=== PATIENT | male | born 1965 | race Caucasian/White ===

== ENCOUNTER 2020-05-18 06:15 | Outpatient (REF) | payer BC, SELFPAY ==
[2020-05-18 11:14] LABS: MANUAL DIFF FLAG NO
[2020-05-18 11:21] LABS: Basophils Percent Auto 0.5 % (0-2); Eosinophils Absolute Auto 0.2 X10*3/uL (0.0-0.4); Eosinophils Percent Auto 2.9 % (0-4); Hematocrit 43.9 % (42-52); Hemoglobin 14.6 g/dl (14.0-18.0); Imm Gran Abs Auto 0.01 X10*3/uL (0.00-0.03); Imm Gran Pct Auto 0.2 % (0.0-0.4); Lymphocytes Absolute Auto 1.1 X10*3/uL (1.2-4.9); Lymphocytes Percent Auto 18.2 % (20-40); Mean Corpuscular HGB Conc 33.3 g/dl (31.0-36.0); Mean Corpuscular Hemoglobin 32.2 pg (27.0-33.0); Mean Corpuscular Volume 96.9 fL (80-98); Mean Platelet Volume 10.3 fL (9.4-12.4); Monocytes Absolute Auto 0.6 X10*3/uL (0.1-1.2); Monocytes Percent Auto 9.6 % (2-11); Neutrophils Absolute Auto 4.1 X10*3/uL (2.0-8.3); Neutrophils Percent Auto 68.6 % (45-73); Platelet Count 219 X10*3/uL (160-400); Red Blood Count 4.53 X10*6/uL (4.60-5.80); Red Cell Distribution Width 12.9 % (11.0-16.0)
[2020-05-18 11:42] LABS: Alanine Aminotransferase 20 U/L (0-40); Albumin Level 4.6 g/dL (3.5-5.0); Alkaline Phosphatase 60 U/L (39-117); Anion Gap 14 (12-20); Aspartate Amino Transferase 20 U/L (5-37); Bilirubin Total 1.5 mg/dL (0.0-1.0); Blood Urea Nitrogen 19 mg/dL (9-16); Calcium 9.4 mg/dL (8.4-10.2); Carbon Dioxide 26 mmol/L (22-29); Chloride 103 mmol/L (96-108); Estimated Glomerular Filt Rate > 60; Glucose Random 104 mg/dL (60-115); Potassium 4.3 mmol/l (3.3-5.1); Sodium 139 mmol/L (135-145); Total Protein 7.5 g/dL (6.5-8.0)
[2020-05-18 11:50] LABS: Ferritin 331 ng/mL (20-250); TSH reflex Free T4 1.11 mIU/mL (0.32-4.0)
[2020-05-18 12:05] LABS: Vitamin B12 481 pg/mL (200-900)
[2020-05-19 06:47] LABS: LDL Cholesterol Direct 75 mg/dL (<100)
== END 2020-05-18 06:16 | disposition home or self-care (01) ==
LOC: HO.HMGCLDS 06:15
PROVIDERS: PCP Internal Medicine; Visit Provider Internal Medicine
DX: I10 Essential (primary) hypertension (principal); R73.03 Prediabetes; R79.89 Other specified abnormal findings of blood chemistry; E53.8 Deficiency of other specified B group vitamins; E78.2 Mixed hyperlipidemia; G62.1 Alcoholic polyneuropathy
CPT/HCPCS: 36415; 80053; 82607; 82728; 83721; 84443; 85025

== ENCOUNTER 2020-11-04 06:01 | Outpatient (REF) | payer OTHER, SELFPAY ==
[2020-11-04 17:38] LABS: Estimated Average Glucose 103 mg/dL; Hemoglobin A1c % 5.2 %
[2020-11-04 17:43] LABS: Alanine Aminotransferase 29 U/L (0-40); Albumin Level 4.6 g/dL (3.5-5.0); Alkaline Phosphatase 65 U/L (39-117); Anion Gap 13 (12-20); Aspartate Amino Transferase 18 U/L (5-37); Bilirubin Direct 0.6 mg/dL (0.0-0.5); Bilirubin Total 1.2 mg/dL (0.0-1.0); Blood Urea Nitrogen 16 mg/dL (9-16); Calcium 9.5 mg/dL (8.4-10.2); Carbon Dioxide 30 mmol/L (22-29); Chloride 102 mmol/L (96-108); Estimated Glomerular Filt Rate > 60; Glucose Random 106 mg/dL (60-115); Potassium 4.7 mmol/L (3.3-5.1); Sodium 140 mmol/L (135-145); Total Protein 7.5 g/dL (6.5-8.0)
[2020-11-04 17:55] LABS: Ferritin 367 ng/mL (20-250)
[2020-11-05 01:52] LABS: LDL Cholesterol Direct 72 mg/dL (<100)
== END 2020-11-04 06:02 | disposition home or self-care (01) ==
LOC: HO.HMGCLDS 06:01
PROVIDERS: PCP Internal Medicine; Visit Provider Internal Medicine
DX: E53.8 Deficiency of other specified B group vitamins (principal); E78.9 Disorder of lipoprotein metabolism, unspecified; G62.1 Alcoholic polyneuropathy; R79.89 Other specified abnormal findings of blood chemistry; R73.03 Prediabetes; I10 Essential (primary) hypertension
CPT/HCPCS: 36415; 80048; 80076; 81256; 82728; 83036; 83721

== ENCOUNTER 2020-12-25 07:16 | Outpatient (REF) | payer OTHER, SELFPAY ==
--- NOTE | ~2020-12-25 | CT_ITS ---
EXAMINATION: CT CHEST SCREENING CLINICAL INFORMATION: Personal history of nicotine dependence. COMPARISON: CT chest screening 10/09/2019 TECHNIQUE: Multidetector volumetric CT imaging of the chest is performed without contrast using low dose technique. Additional 2-D coronal and sagittal reformatted images and axial 3-D maximum intensity projection (MIP) images are generated on the CT workstation. This CT examination was performed using dose optimization techniques as appropriate, variously including the following: *Automated exposure control *Adjustment of mA and/or kV according to patient size (this includes techniques or standardized protocols for targeted exams where dose is matched to indication/reason for exam; i.e. extremities or head) *Use of iterative reconstruction technique DLP: 80 mGy-cm FINDINGS: LUNGS: There is a 2 mm subpleural nodule laterally left lower lobe image 414/6. There is a 10 mm parenchymal density in the lingula image 327/6. Previously, it measured approximately the same size. No additional lung nodules seen. The lungs are hyperinflated with no acute process seen. MEDIASTINUM: The thyroid lobes are symmetrical and normal. The central trachea and bronchi are widely patent. Heart size and the great vessels are normal caliber. No abnormal lymph nodes or mass seen. There is no pericardial effusion. PLEURA: There is no pleural effusion. No pleural mass or thickening. AXILLA: No lymphadenopathy. UPPER ABDOMEN: Unremarkable. OSSEOUS STRUCTURES: No lytic or sclerotic process seen. CT/CT lung screening IMPRESSION: Stable pulmonary nodules. ASSESSMENT: Lung-RADS category 2: Benign. RECOMMENDATION: Low-dose annual CT chest.
== END 2020-12-25 07:17 | disposition home or self-care (01) ==
LOC: HO.CT 07:16
PROVIDERS: Visit Provider Physician Assistant Medical
DX: Z12.2 Encounter for screening for malignant neoplasm of respiratory organs (principal); Z87.891 Personal history of nicotine dependence
CPT/HCPCS: 71271

== ENCOUNTER 2021-03-26 07:48 | Outpatient (REF) | payer OTHER, SELFPAY ==
[2021-03-26 12:04] LABS: Estimated Average Glucose 105 mg/dL; Hemoglobin A1c % 5.3 %
[2021-03-26 12:30] LABS: Alanine Aminotransferase 26 U/L (0-40); Albumin Level 4.6 g/dL (3.5-5.0); Alkaline Phosphatase 70 U/L (39-117); Anion Gap 14 (12-20); Aspartate Amino Transferase 17 U/L (5-37); Bilirubin Total 1.8 mg/dL (0.0-1.0); Blood Urea Nitrogen 19 mg/dL (9-16); Calcium 9.6 mg/dL (8.4-10.2); Carbon Dioxide 27 mmol/L (22-29); Chloride 104 mmol/L (96-108); Estimated Glomerular Filt Rate > 60; Glucose Random 104 mg/dL (60-115); Potassium 4.9 mmol/L (3.3-5.1); Sodium 140 mmol/L (135-145); Total Protein 7.6 g/dL (6.5-8.0)
[2021-03-26 12:51] LABS: Ferritin 388 ng/mL (20-250)
== END 2021-03-26 07:49 | disposition home or self-care (01) ==
LOC: HO.HMGCLDS 07:48
PROVIDERS: PCP Internal Medicine; Visit Provider Internal Medicine
DX: G62.1 Alcoholic polyneuropathy (principal); E78.9 Disorder of lipoprotein metabolism, unspecified; R79.89 Other specified abnormal findings of blood chemistry; R73.03 Prediabetes; I10 Essential (primary) hypertension; F10.20 Alcohol dependence, uncomplicated
CPT/HCPCS: 36415; 80053; 82728; 83036

== ENCOUNTER 2021-06-18 08:00 | Outpatient (REF) | payer OTHER, SELFPAY ==
[2021-06-18 11:28] LABS: MANUAL DIFF FLAG NO
[2021-06-18 11:32] LABS: Basophils Percent Auto 0.5 % (0-2); Eosinophils Absolute Auto 0.2 X10*3/uL (0.0-0.4); Eosinophils Percent Auto 2.9 % (0-4); Hematocrit 41.4 % (42.0-52.0); Hemoglobin 13.7 g/dl (14.0-18.0); Imm Gran Abs Auto 0.03 X10*3/uL (0.00-0.03); Imm Gran Pct Auto 0.5 % (0.0-0.4); Lymphocytes Absolute Auto 1.2 X10*3/uL (1.2-4.9); Lymphocytes Percent Auto 19.4 % (20-40); Mean Corpuscular HGB Conc 33.1 g/dl (31.0-36.0); Mean Corpuscular Hemoglobin 30.8 pg (27.0-33.0); Mean Platelet Volume 10.1 fL (9.4-12.4); Monocytes Absolute Auto 0.7 X10*3/uL (0.1-1.2); Monocytes Percent Auto 11.6 % (2-11); Neutrophils Percent Auto 65.1 % (45-73); Platelet Count 237 X10*3/uL (160-400); Red Blood Count 4.45 X10*6/uL (4.60-5.80); Red Cell Distribution Width 12.7 % (11.0-16.0); White Blood Count 6.2 X10*3/uL (4.8-10.8)
[2021-06-18 12:17] LABS: Ferritin 431 ng/mL (20-250)
[2021-06-18 12:18] LABS: Alanine Aminotransferase 27 U/L (0-40); Albumin Level 4.2 g/dL (3.5-5.0); Alkaline Phosphatase 64 U/L (39-117); Anion Gap 16 (12-20); Aspartate Amino Transferase 20 U/L (5-37); Bilirubin Total 1.9 mg/dL (0.0-1.0); Blood Urea Nitrogen 13 mg/dL (9-16); Calcium 9.4 mg/dL (8.4-10.2); Carbon Dioxide 24 mmol/L (22-29); Chloride 103 mmol/L (96-108); Estimated Glomerular Filt Rate > 60; Glucose Random 102 mg/dL (60-115); Sodium 138 mmol/L (135-145); Total Protein 7.1 g/dL (6.5-8.0)
== END 2021-06-18 08:01 | disposition home or self-care (01) ==
LOC: HO.HMGCLDS 08:00
PROVIDERS: PCP Internal Medicine; Visit Provider Internal Medicine
DX: E78.9 Disorder of lipoprotein metabolism, unspecified (principal); G62.1 Alcoholic polyneuropathy; I10 Essential (primary) hypertension; K76.0 Fatty (change of) liver, not elsewhere classified; R73.03 Prediabetes; R79.89 Other specified abnormal findings of blood chemistry
CPT/HCPCS: 36415; 80053; 82728; 85025

== ENCOUNTER 2021-10-22 08:17 | Outpatient (REF) | payer OTHER, SELFPAY ==
[2021-10-22 12:11] LABS: Alanine Aminotransferase 30 U/L (0-40); Albumin Level 4.4 g/dL (3.5-5.0); Alkaline Phosphatase 83 U/L (39-117); Anion Gap 11 (12-20); Aspartate Amino Transferase 20 U/L (5-37); Bilirubin Total 1.3 mg/dL (0.0-1.0); Blood Urea Nitrogen 17 mg/dL (9-16); Calcium 9.6 mg/dL (8.4-10.2); Carbon Dioxide 26 mmol/L (22-29); Chloride 105 mmol/L (96-108); Estimated Glomerular Filt Rate > 60; Glucose Random 124 mg/dL (60-115); Potassium 4.7 mmol/L (3.3-5.1); Sodium 137 mmol/L (135-145); Total Protein 7.6 g/dL (6.5-8.0)
== END 2021-10-22 08:18 | disposition home or self-care (01) ==
LOC: HO.HMGCLDS 08:17
PROVIDERS: Visit Provider Internal Medicine
DX: I10 Essential (primary) hypertension (principal); E78.9 Disorder of lipoprotein metabolism, unspecified; G62.1 Alcoholic polyneuropathy; R94.5 Abnormal results of liver function studies; F10.20 Alcohol dependence, uncomplicated
CPT/HCPCS: 36415; 80053

== ENCOUNTER 2022-09-19 06:09 | Outpatient (REF) | payer OTHER, SELFPAY ==
[2022-09-19 11:26] LABS: Estimated Average Glucose 117 mg/dL; Hemoglobin A1c % 5.7 %
[2022-09-19 11:32] LABS: Alanine Aminotransferase 22 U/L (0-40); Albumin Level 4.1 g/dL (3.5-5.0); Alkaline Phosphatase 53 U/L (39-117); Anion Gap 14 (12-20); Aspartate Amino Transferase 13 U/L (5-37); Bilirubin Total 1.1 mg/dL (0.0-1.0); Blood Urea Nitrogen 19 mg/dL (9-16); Calcium 9.5 mg/dL (8.4-10.2); Carbon Dioxide 27 mmol/L (22-29); Chloride 102 mmol/L (96-108); Estimated Glomerular Filt Rate > 60; Glucose Random 105 mg/dL (60-115); Potassium 5.3 mmol/L (3.3-5.1); Sodium 138 mmol/L (135-145); Total Protein 7.3 g/dL (6.5-8.0)
[2022-09-19 11:45] LABS: Ferritin 625 ng/mL (20-250); Vitamin B12 1145 pg/mL (200-900)
== END 2022-09-19 06:10 | disposition home or self-care (01) ==
LOC: HO.HMGCLDS 06:09
PROVIDERS: PCP Internal Medicine; Visit Provider Internal Medicine
DX: E53.8 Deficiency of other specified B group vitamins (principal); E78.9 Disorder of lipoprotein metabolism, unspecified; F10.20 Alcohol dependence, uncomplicated; G62.1 Alcoholic polyneuropathy; R79.89 Other specified abnormal findings of blood chemistry; R73.03 Prediabetes; I10 Essential (primary) hypertension
CPT/HCPCS: 36415; 80053; 82607; 82728; 83036

== ENCOUNTER 2022-10-14 11:03 | Outpatient (REF) | payer OTHER, SELFPAY ==
[2022-10-14 13:50] LABS: Alanine Aminotransferase 22 U/L (0-40); Albumin Level 4.4 g/dL (3.5-5.0); Alkaline Phosphatase 65 U/L (39-117); Anion Gap 13 (12-20); Aspartate Amino Transferase 16 U/L (5-37); Bilirubin Total 1.9 mg/dL (0.0-1.0); Blood Urea Nitrogen 15 mg/dL (9-16); Calcium 9.6 mg/dL (8.4-10.2); Carbon Dioxide 27 mmol/L (22-29); Chloride 102 mmol/L (96-108); Estimated Glomerular Filt Rate > 60; Glucose Random 99 mg/dL (60-115); Potassium 4.9 mmol/L (3.3-5.1); Sodium 137 mmol/L (135-145); Total Protein 7.3 g/dL (6.5-8.0)
[2022-10-14 13:53] LABS: Ferritin 507 ng/mL (20-250)
== END 2022-10-14 11:04 | disposition home or self-care (01) ==
LOC: HO.HMGCLDS 11:03
PROVIDERS: Visit Provider Internal Medicine
DX: I10 Essential (primary) hypertension (principal); R79.89 Other specified abnormal findings of blood chemistry; E87.5 Hyperkalemia; R74.8 Abnormal levels of other serum enzymes
CPT/HCPCS: 36415; 80053; 82728

== ENCOUNTER 2022-10-28 08:10 | Outpatient (REF) | payer OTHER, SELFPAY ==
--- NOTE | ~2022-10-28 | CT_ITS ---
EXAMINATION: LUNG CANCER SCREENING CT CHEST WITHOUT CONTRAST CLINICAL INFORMATION: Former smoker with 30 pack year history, quit 9 years ago COMPARISON: 12/25/2020 and 08/14/2015 TECHNIQUE: Multidetector volumetric CT imaging of the chest was obtained noncontrast using low dose screening CT technique. Axial thin section 0.625 mm reformations in soft tissue and lung windows were obtained. Sagittal and coronal reformations were obtained. Axial MIP images were also created and reviewed. This CT examination was performed using dose optimization techniques as appropriate, variously including the following: *Automated exposure control *Adjustment of mA and/or kV according to patient size (this includes techniques or standardized protocols for targeted exams where dose is matched to indication/reason for exam; i.e. extremities or head) *Use of iterative reconstruction technique TOTAL EXAM DLP: 93 mGy-cm. FINDINGS: PULMONARY NODULES: No suspicious pulmonary nodules. Long-term stability of a 9.7 x 6.3 mm nodule in the lingula, likely along accessory fissure favored representing a lymph node LUNGS / PLEURA: Mild emphysema. Diffuse mild bronchial wall thickening without bronchiectasis. Diffuse mild subpleural reticulation, with associated dependent groundglass opacity, most pronounced along the dependent lower lobes bilaterally, the latter likely representing subsegmental atelectasis although a degree of early pulmonary fibrosis may be contributing. No pleural effusion or pneumothorax. MEDIASTINUM / JULIOCESAR: Heart normal in size without pericardial effusion. Great vessels normal caliber. No lymphadenopathy. Coronary calcifications present. Imaged thyroid gland unremarkable. CHEST WALL / AXILLA: Unremarkable. UPPER ABDOMEN: Included portions grossly unremarkable allowing for limitations in technique. OSSEOUS STRUCTURES: No acute or suspicious osseous abnormalities. CT/CT lung screening IMPRESSION: * No evidence of pulmonary malignancy. * Mild emphysema and chronic airways disease. ASSESSMENT: Lung RADS category: 2. Benign appearance or behavior. Nodules with a very low likelihood of becoming a clinically active cancer due to size or lack of growth. Continue annual screening with low-dose CT in 12 months. Probability of malignancy less than 1%. INCIDENTAL FINDINGS (S CATEGORY): None. RECOMMENDATION: Follow up low dose CT chest in 1 year.
== END 2022-10-28 08:11 | disposition home or self-care (01) ==
LOC: HO.CT 08:10
PROVIDERS: PCP Internal Medicine; Visit Provider Physician Assistant Medical
DX: Z12.2 Encounter for screening for malignant neoplasm of respiratory organs (principal); Z87.891 Personal history of nicotine dependence
CPT/HCPCS: 71271

== ENCOUNTER 2023-04-21 07:48 | Outpatient (AMB) | payer OTHER, SELFPAY ==
--- NOTE | 2023-04-21 07:59 | A.OFFPC_ITS ---
Vital Signs 3 04/21/23 08:01 Height 6 ft 2 in Weight 326 lb BMI 41.9 BP 122/76 Blood Pressure Location Rt brachial Position Sitting Pulse 76 Pulse Source Pulse Oximeter Pulse Oximetry (%) 100 Intake Visit Reasons: Annual PE Allergies No Known Allergies [No Known Allergies*] Allergy (Verified 04/21/23 08:01) Medication List - Last Reconciled 04/21/23 by Kelsie Frye MD atorvastatin 40 mg PO DAILY cyanocobalamin (vitamin B-12) 2,000 mcg (2 x 1,000 mcg) PO DAILY lisinopril 10 mg PO DAILY 90 days Tobacco use date assessed: 04/21/23 Dental Screening Dental Screen Date: 04/21/23 Did you have a dental visit in the last 12 months?: No Did you have a dental problem in the last 6 months where you did not have access to dental care?: No Was dental information given to patient?: Patient declined HPI Annual PE 2 HPI0 Details Patient is 58-year-old gentleman came in today for physical examination Patient continued to drink heavily alcohol and has no desire to stop Patient is aware of toxic effects of alcohol. He stopped smoking 10 years ago Colonoscopy: In the system it is listed at 2016 and there was 1 tubular adenoma However patient says that he just had it 2 years ago. We will do some investigation regarding that he is due for another colonoscopy if it was done in 2016, patient saw Dr. Shrestha then Morbid obesity with a BMI of 41.9, patient is having difficulty losing weight. Blood pressure is stable he is on lisinopril 10 mg And atorvastatin 40 mg for lipid control Patient is due for labs. And he is due for labs every 4 months before he come and see me. Patient has elevated ferritin he has been evaluated by Hematology already is hemochromatosis gene was negative [facility] Medical History WALT (obstructive sleep apnea) Personal history of nicotine dependence Tubular adenoma of colon Emphysema lung Sensorineural hearing loss Pulmonary nodules LVH (left ventricular hypertrophy) Fatty liver Alcoholic polyneuropathy Lipid disorder B12 deficiency Elevated ferritin Pre-diabetes Hypertension, essential Surgical History History of colonoscopy Family History Father Lung cancer Mother No problems noted. Maternal Grandfather Cancer Maternal Grandmother Diabetes mellitus Paternal Grandfather Unknown family medical history Paternal Grandmother Unknown family medical history Brother No problems noted. Brother No problems noted. Sister No problems noted. Sister No problems noted. Son No problems noted. Social History Housing: House Alcohol intake: current Alcohol intake frequency: 0-2 drinks per day Patient Tobacco Use Status: Former Tobacco user (10 years ago ) Tobacco use type: Cigarette Years Smoked: 20 years e-Cigarette/Vaping Use: Never Used Second Hand Smoke Exposure: No Current occupational status: employed Cognitive needs: No Hearing needs: No Vision needs: No Questionnaire PHQ-9 Over the last 2 weeks, how often have you been bothered by any of the following problems? 1. Little interest or pleasure in doing things: not at all 2. Feeling down, depressed, or hopeless: not at all 3. Trouble falling or staying asleep, or sleeping too much: not at all 4. Feeling tired or having little energy: not at all 5. Poor appetite or overeating: not at all 6. Feeling bad about yourself - or that you are a failure or have let yourself or your family down: not at all 7. Trouble concentrating on things, such as reading the newspaper or watching television: not at all 8. Moving or speaking so slowly that other people could have noticed. Or the opposite - being so fidgety or restless that you have been moving around a lot more than usual: not at all 9. Thoughts that you would be better off or of hurting yourself in some way: not at all Total score: 0 Depression Screening Interpretation: Negative 44064 - PHQ-9 Billing: Yes Source: Developed by Drs. Scooby Bender, Nelida Amaro, Jaden Shipley and colleagues, with an educational jordyn from [employer]. Thrive Questionnaire Date Thrive assessed: 04/21/23 I am a: Patient What is your living situation today?: I have a steady place to live Within the past 12 months, did the food you bought not last and you didn't have the money to get more?: Never true Within the past 12 months, did you worry whether your food would run out before you got money to buy more?: Never true Do you have trouble paying for medicines?: No Do you have trouble getting transportation to medical appointments?: No Do you have trouble paying your heating and electricity bill?: No Do you have trouble taking care of your child, family member or friend?: No Do you have trouble with day-to-day activities such as bathing, preparing meals, shopping, managing finances, etc.?: No Are you currently unemployed and looking for a job?: No Are you interested in more education?: No Please select the resources that you would like help with: None Currently or been in a relationship where the following occur: no concerns reported NENITA-7 AMB Questionnaire NENITA-7 Date NENITA - 7 assessed: 04/21/23 Feeling nervous, anxious, or on edge: 0 = Not at all Not being able to stop or control worryin = Not at all Worrying too much about different things: 0 = Not at all Trouble relaxin = Not at all Being so restless that it is hard to sit still: 0 = Not at all Becoming easily annoyed or irritable: 0 = Not at all Feeling afraid as if something awful might happen: 0 = Not at all Total NENITA-7 score (0-4 normal; 5-9 mild; 10-14 moderate; 15-21 severe): 0 Source: Developed by Drs. Scooby Bender, Nelida Amaro, Jaden Shipley and colleagues, with an educational jordyn from [employer]. NENITA-7 Assessment Billing NENITA-7 Assessment Tool: NENITA-7 Assessment 39114 Review of Systems Const Denies chills, Denies fever(s) and Denies headache(s) Eyes Denies blurry vision ENT Denies headache(s), Denies nasal discharge, Denies nasal obstruction, Denies odynophagia and Denies sinus pain Card Denies chest pain at rest and Denies chest pain with activity Resp Denies cough and Denies hemoptysis GI Denies diarrhea, Denies odynophagia, Denies vomiting and Denies hematemesis Reports as per HPI Musc Denies abnormal gait Skin/Breast Reports as per HPI Neuro Denies Neuro-related abnormal movements, Denies Abnormal speech present, Denies abnormal gait and Denies headache(s) Psych Denies mood swings and Denies paranoia Endo Reports as per HPI Terence/Lymph Reports as per HPI Aller/Immun Reports as per HPI Physical exam (Primary Care) Vital Signs: Last Vital Signs Pulse 76 04/21/23 08:01 BP 122/76 04/21/23 08:01 Pulse Ox 100 04/21/23 08:01 BMI result Body Mass Index 41.9 Tobacco/Smoking Status: Tobacco use Status Tobacco use date assessed 04/21/23 04/21/23 08:03 Patient Tobacco Use Status Former Tobacco user (10 04/21/23 08:00 years ago ) Tobacco use type Cigarette 04/21/23 08:00 e-Cigarette/Vaping Use Never Used 04/21/23 08:00 PHQ-9: PHQ-9 Score PHQ-9: Total score 0 04/21/23 08:17 Depression Screening Interpretation: Negative Thrive Assessment: Date of Thrive Assessment Date Thrive assessed 04/21/23 04/21/23 08:05 Currently or been in a relationship where the following occur: no concerns reported Const General: cooperative, comfortable and no acute distress Orientation/consciousness: patient oriented x3 HENMT Head: Yes normocephalic and Yes atraumatic Eyes General: appearance normal, both eyes and all related structures Pupils: Equal, round and reactive pupils present EOM: EOMs intact bilaterally Neck Neck: Yes supple and No lymphadenopathy Thyroid: Thyroid normal Lymphatic: no lymphadenopathy noted Resp Effort & Inspection: normal respiratory effort and able to speak in complete sentences Auscultation: clear to auscultation bilaterally Cardio Heart sounds: S1 normal heart sound present and S2 normal heart sound present GI Palpation (GI): Soft to palpation and nontender Auscultation: normal bowel sounds General: Yes no CVA tenderness Back/Spine/Pelvis Back: no CVA tenderness Skin General skin exam: elasticity normal and turgor normal Neuro General: patient oriented x3 and gait normal Cranial nerves: Yes Equal, round and reactive pupils present Speech: No Abnormal speech present Coordination: tandem gait normal and Romberg test negative Extrem Other: 1+ pitting edema both ankles General: Yes normal exam except as noted Shoulder/upper arm images: 2 1. 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 Assessment and Plan Assessment & Plan (1) Encounter for general adult medical examination with abnormal findings: Code(s): Z00.01 - Encounter for general adult medical examination with abnormal findings (2) Personal history of nicotine dependence: Comment: (former smoker, 30pyh, quit ~2011) Code(s): Z87.891 - Personal history of nicotine dependence (3) LFT elevation: Code(s): R79.89 - Other specified abnormal findings of blood chemistry (4) Alcoholism: Code(s): F10.20 - Alcohol dependence, uncomplicated (5) Alcoholic polyneuropathy: Code(s): G62.1 - Alcoholic polyneuropathy (6) Lipid disorder: Code(s): E78.9 - Disorder of lipoprotein metabolism, unspecified (7) Elevated ferritin: Code(s): R79.89 - Other specified abnormal findings of blood chemistry (8) Pre-diabetes: Code(s): R73.03 - Prediabetes (9) Hypertension, essential: Code(s): I10 - Essential (primary) hypertension (10) Olecranon bursitis, left elbow: Code(s): M70.22 - Olecranon bursitis, left elbow (11) Pitting edema: Code(s): R60.9 - Edema, unspecified Plan Patient is 58-year-old gentleman came in today for physical examination Patient continued to drink heavily alcohol and has no desire to stop Patient is aware of toxic effects of alcohol. He stopped smoking 10 years ago Colonoscopy: In the system it is listed at 2016 and there was 1 tubular adenoma However patient says that he just had it 2 years ago. We will do some investigation regarding that he is due for another colonoscopy if it was done in 2016, patient saw Dr. Shrestha then Morbid obesity with a BMI of 41.9, patient is having difficulty losing weight. Blood pressure is stable he is on lisinopril 10 mg And atorvastatin 40 mg for lipid control Patient is due for labs. And he is due for labs every 4 months before he come and see me. Patient has elevated ferritin he has been evaluated by Hematology already is hemochromatosis gene was negative Orders: Orders 2 Comprehensive Met. Panel Today E78.9 - Disorder of lipoprotein metabolism, unspecified, F10.20 - Alcohol dependence, uncomplicated, G62.1 - Alcoholic polyneuropathy, I10 - Essential (primary) hypertension, R73.03 - Prediabetes, R79.89 - Other specified abnormal findings of blood chemistry, Z00.01 - Encounter for general adult medical examination with abnormal findings, Z87.891 - Personal history of nicotine dependence LDL Cholesterol Direct Today E78.9 - Disorder of lipoprotein metabolism, unspecified, F10.20 - Alcohol dependence, uncomplicated, G62.1 - Alcoholic polyneuropathy, I10 - Essential (primary) hypertension, R73.03 - Prediabetes, R79.89 - Other specified abnormal findings of blood chemistry, Z00.01 - Encounter for general adult medical examination with abnormal findings, Z87.891 - Personal history of nicotine dependence Vitamin D 25-OH (D2 and D3) Today E78.9 - Disorder of lipoprotein metabolism, unspecified, F10.20 - Alcohol dependence, uncomplicated, G62.1 - Alcoholic polyneuropathy, I10 - Essential (primary) hypertension, R73.03 - Prediabetes, R79.89 - Other specified abnormal findings of blood chemistry, Z00.01 - Encounter for general adult medical examination with abnormal findings, Z87.891 - Personal history of nicotine dependence TSH reflex Free T4 Today E78.9 - Disorder of lipoprotein metabolism, unspecified, F10.20 - Alcohol dependence, uncomplicated, G62.1 - Alcoholic polyneuropathy, I10 - Essential (primary) hypertension, R73.03 - Prediabetes, R79.89 - Other specified abnormal findings of blood chemistry, Z00.01 - Encounter for general adult medical examination with abnormal findings, Z87.891 - Personal history of nicotine dependence Comprehensive Met. Panel 3 Months E78.9 - Disorder of lipoprotein metabolism, unspecified, G62.1 - Alcoholic polyneuropathy, I10 - Essential (primary) hypertension, R73.03 - Prediabetes, R79.89 - Other specified abnormal findings of blood chemistry Ferritin Today E78.9 - Disorder of lipoprotein metabolism, unspecified, F10.20 - Alcohol dependence, uncomplicated, G62.1 - Alcoholic polyneuropathy, I10 - Essential (primary) hypertension, R73.03 - Prediabetes, R79.89 - Other specified abnormal findings of blood chemistry, Z00.01 - Encounter for general adult medical examination with abnormal findings, Z87.891 - Personal history of nicotine dependence Complete Blood Count Auto Diff Today E78.9 - Disorder of lipoprotein metabolism, unspecified, F10.20 - Alcohol dependence, uncomplicated, G62.1 - Alcoholic polyneuropathy, I10 - Essential (primary) hypertension, R73.03 - Prediabetes, R79.89 - Other specified abnormal findings of blood chemistry, Z00.01 - Encounter for general adult medical examination with abnormal findings, Z87.891 - Personal history of nicotine dependence Vitamin B12 Today E78.9 - Disorder of lipoprotein metabolism, unspecified, F10.20 - Alcohol dependence, uncomplicated, G62.1 - Alcoholic polyneuropathy, I10 - Essential (primary) hypertension, R73.03 - Prediabetes, R79.89 - Other specified abnormal findings of blood chemistry, Z00.01 - Encounter for general adult medical examination with abnormal findings, Z87.891 - Personal history of nicotine dependence Ferritin 3 Months E78.9 - Disorder of lipoprotein metabolism, unspecified, G62.1 - Alcoholic polyneuropathy, I10 - Essential (primary) hypertension, R73.03 - Prediabetes, R79.89 - Other specified abnormal findings of blood chemistry Complete Blood Count Auto Diff 3 Months E78.9 - Disorder of lipoprotein metabolism, unspecified, G62.1 - Alcoholic polyneuropathy, I10 - Essential (primary) hypertension, R73.03 - Prediabetes, R79.89 - Other specified abnormal findings of blood chemistry Coding Level of Care Code Est Pt Prev Care 40-64y(61629) Diagnoses Encounter for general adult medical examination with abnormal findings Z00.01 Personal history of nicotine dependence Z87.891 LFT elevation R79.89 Alcoholism F10.20 Alcoholic polyneuropathy G62.1 Lipid disorder E78.9 Elevated ferritin R79.89 Pre-diabetes R73.03 Hypertension, essential I10 Olecranon bursitis, left elbow M70.22 Pitting edema R60.9 Additional Codes NENITA-7 Assessment Billing - NENITA-7 Assessment Tool: NENITA-7 Assessment [id number] ([id number])
[2023-04-21 08:01] VITALS: BP 122/76; PULSE 76; O2SAT 100; BMI 41.9
== END 2023-04-21 08:17 | disposition home or self-care (01) ==
PROVIDERS: Visit Provider Internal Medicine
DX: Z00.00 Encounter for general adult medical examination without abnormal findings (principal); F10.20 Alcohol dependence, uncomplicated; G62.1 Alcoholic polyneuropathy; Z87.891 Personal history of nicotine dependence; I10 Essential (primary) hypertension; R79.89 Other specified abnormal findings of blood chemistry; E78.9 Disorder of lipoprotein metabolism, unspecified; R73.03 Prediabetes; M70.22 Olecranon bursitis, left elbow; R60.9 Edema, unspecified
CPT/HCPCS: 99396

== ENCOUNTER 2023-04-21 08:18 | Outpatient (REF) | payer OTHER, SELFPAY ==
[2023-04-21 11:19] LABS: MANUAL DIFF FLAG NO
[2023-04-21 11:41] LABS: Basophils Percent Auto 0.5 % (0-2); Eosinophils Absolute Auto 0.1 X10*3/uL (0.0-0.4); Eosinophils Percent Auto 2.3 % (0-4); Hematocrit 44.2 % (42.0-52.0); Hemoglobin 14.7 g/dl (14.0-18.0); Imm Gran Abs Auto 0.01 X10*3/uL (0.00-0.03); Imm Gran Pct Auto 0.2 % (0.0-0.4); Lymphocytes Absolute Auto 1.2 X10*3/uL (1.2-4.9); Lymphocytes Percent Auto 19.3 % (20-40); Mean Corpuscular HGB Conc 33.3 g/dl (31.0-36.0); Mean Corpuscular Hemoglobin 32.2 pg (27.0-33.0); Mean Corpuscular Volume 96.9 fL (80.0-98.0); Mean Platelet Volume 10.1 fL (9.4-12.4); Monocytes Absolute Auto 0.6 X10*3/uL (0.1-1.2); Monocytes Percent Auto 9.1 % (2-11); Neutrophils Absolute Auto 4.2 x10*3/uL (2.0-8.3); Neutrophils Percent Auto 68.6 % (45-73); Platelet Count 220 X10*3/uL (160-400); Red Blood Count 4.56 X10*6/uL (4.60-5.80); Red Cell Distribution Width 12.9 % (11.0-16.0); White Blood Count 6.2 X10*3/uL (4.8-10.8)
[2023-04-21 12:26] LABS: Alanine Aminotransferase 28 U/L (0-40); Albumin Level 4.6 g/dL (3.5-5.0); Alkaline Phosphatase 59 U/L (39-117); Anion Gap 13 (12-20); Aspartate Amino Transferase 21 U/L (5-37); Bilirubin Total 1.7 mg/dL (0.0-1.0); Blood Urea Nitrogen 17 mg/dL (9-16); Calcium 9.9 mg/dL (8.4-10.2); Carbon Dioxide 27 mmol/L (22-29); Chloride 104 mmol/L (96-108); Estimated Glomerular Filt Rate > 60; Ferritin 548 ng/mL (20-250); Glucose Random 102 mg/dL (60-115); Potassium 4.7 mmol/L (3.3-5.1); Sodium 139 mmol/L (135-145); TSH reflex Free T4 1.11 uIU/mL (0.32-4.0)
[2023-04-21 12:33] LABS: Vitamin B12 658 pg/mL (200-900)
[2023-04-22 22:28] LABS: LDL Cholesterol Direct 83 mg/dL (<100)
[2023-04-25 16:17] LABS: Vitamin D 25-OH, D2 <4 ng/mL; Vitamin D 25-OH, D3 29 ng/mL; Vitamin D 25-OH, Total 29 ng/mL (30-100)
== END 2023-04-21 08:19 | disposition home or self-care (01) ==
LOC: HO.HMGCLDS 08:18
PROVIDERS: PCP Internal Medicine; Visit Provider Internal Medicine
DX: Z00.01 Encounter for general adult medical examination with abnormal findings (principal); R79.89 Other specified abnormal findings of blood chemistry; F10.20 Alcohol dependence, uncomplicated; G62.1 Alcoholic polyneuropathy; E78.9 Disorder of lipoprotein metabolism, unspecified; R73.03 Prediabetes; I10 Essential (primary) hypertension; Z87.891 Personal history of nicotine dependence
CPT/HCPCS: 36415; 80053; 82306; 82607; 82728; 83721; 84443; 85025

== ENCOUNTER 2023-10-19 08:39 | Outpatient (REF) | payer OTHER, SELFPAY ==
--- NOTE | ~2023-10-19 | CT_ITS ---
EXAMINATION: CT CHEST SCREENING CLINICAL INFORMATION: Personal history of nicotine dependence. Quit smoking 10 years ago. History of 2 packs per day for a total of 30 pack years. COMPARISON: None available. TECHNIQUE: Multidetector volumetric CT imaging of the chest is performed without contrast using low dose technique. Additional 2D coronal and sagittal reformatted images and axial 3D maximum intensity projection (MIP) images are generated on the CT workstation. This CT examination was performed using dose optimization techniques as appropriate, variously including the following: *Automated exposure control *Adjustment of mA and/or kV according to patient size (this includes techniques or standardized protocols for targeted exams where dose is matched to indication/reason for exam; i.e. extremities or head) *Use of iterative reconstruction technique DLP: 102 mGy-cm FINDINGS: LUNGS: Mild emphysema and bronchial wall thickening is present. Again seen is mild subpleural reticulation. Some peripheral dependent atelectasis at both lung bases. Pulmonary nodules: A lingular 1.3 cm (see sands image) polygonal perifissural nodule is seen and unchanged by my measurements consistent with an intrapulmonary lymph node. A few other tiny 1 to 2 mm micronodules are unchanged. MEDIASTINUM: The mediastinum is normal. CORONARY ARTERY CALCIFICATION: Minimal. PLEURA: There is no pleural effusion. No pleural mass or thickening. AXILLA: No lymphadenopathy. UPPER ABDOMEN: Hepatic steatosis. OSSEOUS STRUCTURES: Minimal degenerative changes in the spine. CT/CT lung screening IMPRESSION: Unchanged lingular perifissural lymph node. A few other tiny micronodules are present unchanged. ASSESSMENT: Lung-RADS category 2: Benign RECOMMENDATION: Routine annual low-dose CT screening in 12 months.
== END 2023-10-19 08:40 | disposition home or self-care (01) ==
LOC: HO.CT 08:39
PROVIDERS: PCP Internal Medicine; Visit Provider Nurse Practitioner Family
DX: Z12.2 Encounter for screening for malignant neoplasm of respiratory organs (principal); Z87.891 Personal history of nicotine dependence
CPT/HCPCS: 71271

== ENCOUNTER 2023-12-22 06:00 | Outpatient (REF) | payer OTHER, SELFPAY ==
[2023-12-22 10:19] LABS: MANUAL DIFF FLAG NO
[2023-12-22 10:31] LABS: Basophils Absolute Auto 0.1 X10*3/uL (0.0-0.2); Basophils Percent Auto 0.7 % (0-2); Eosinophils Absolute Auto 0.3 X10*3/uL (0.0-0.4); Hematocrit 46.4 % (42.0-52.0); Hemoglobin 15.4 g/dl (14.0-18.0); Imm Gran Abs Auto 0.02 X10*3/uL (0.00-0.03); Imm Gran Pct Auto 0.3 % (0.0-0.4); Lymphocytes Absolute Auto 1.6 X10*3/uL (1.2-4.9); Lymphocytes Percent Auto 23.7 % (20-40); Mean Corpuscular HGB Conc 33.2 g/dl (31.0-36.0); Mean Corpuscular Hemoglobin 31.8 pg (27.0-33.0); Mean Corpuscular Volume 95.9 fL (80.0-98.0); Mean Platelet Volume 9.9 fL (9.4-12.4); Monocytes Absolute Auto 0.7 X10*3/uL (0.1-1.2); Monocytes Percent Auto 10.1 % (2-11); Neutrophils Absolute Auto 4.1 x10*3/uL (2.0-8.3); Neutrophils Percent Auto 60.2 % (45-73); Platelet Count 234 X10*3/uL (160-400); Red Blood Count 4.84 X10*6/uL (4.60-5.80); Red Cell Distribution Width 13.2 % (11.0-16.0); White Blood Count 6.8 X10*3/uL (4.8-10.8)
[2023-12-22 11:11] LABS: Alanine Aminotransferase 25 U/L (0-40); Albumin Level 4.6 g/dL (3.5-5.0); Alkaline Phosphatase 57 U/L (39-117); Anion Gap 14 (12-20); Aspartate Amino Transferase 21 U/L (5-37); Bilirubin Total 1.2 mg/dL (0.0-1.0); Blood Urea Nitrogen 19 mg/dL (9-16); Calcium 10.1 mg/dL (8.4-10.2); Carbon Dioxide 26 mmol/L (22-29); Chloride 105 mmol/L (96-108); Estimated Glomerular Filt Rate > 60; Glucose Random 104 mg/dL (60-115); Potassium 5.1 mmol/L (3.3-5.1); Sodium 140 mmol/L (135-145)
[2023-12-22 11:32] LABS: Ferritin 474 ng/mL (20-250)
== END 2023-12-22 06:01 | disposition home or self-care (01) ==
LOC: HO.HMGCLDS 06:00
PROVIDERS: PCP Internal Medicine; Visit Provider Internal Medicine
DX: R79.89 Other specified abnormal findings of blood chemistry (principal); E78.9 Disorder of lipoprotein metabolism, unspecified; R73.03 Prediabetes; I10 Essential (primary) hypertension; G62.1 Alcoholic polyneuropathy
CPT/HCPCS: 36415; 80053; 82728; 85025

== ENCOUNTER 2023-12-27 08:21 | Outpatient (AMB) | payer OTHER, SELFPAY ==
[2023-12-27 08:24] VITALS: BP 136/90; PULSE 80; O2SAT 93; BMI 42.9
--- NOTE | 2023-12-27 08:24 | A.OFFPC_ITS ---
Vital Signs 12/27/23 08:24 Height 6 ft 2 in Weight 334 lb 8 oz BMI 42.9 BP 136/90 H Blood Pressure Location Lt brachial Position Sitting Pulse 80 Pulse Source Pulse Oximeter Pulse Oximetry (%) 93 Oxygen Delivery Method Room Air Intake Visit Reasons: 8 month fu Allergies No Known Allergies [No Known Allergies*] Allergy (Verified 12/27/23 08:24) Medication List - Last Reconciled 12/27/23 by Kelsie Frye MD atorvastatin 40 mg PO DAILY cyanocobalamin (vitamin B-12) 2,000 mcg (2 x 1,000 mcg) PO DAILY lisinopril 10 mg PO DAILY 90 days Tobacco use date assessed: 12/27/23 Dental Screening Dental Screen Date: 12/27/23 Did you have a dental visit in the last 12 months?: No Did you have a dental problem in the last 6 months where you did not have access to dental care?: No Was dental information given to patient?: No HPI 8 month fu HPI Details Patient is 58-year-old gentleman with long history of alcohol use and still using, history of hypertension, prediabetes, history of elevated ferritin with hemochromatosis gene negative already evaluated by Hematology, history of lipid disorder, history of alcoholic polyneuropathy, history of fatty liver, history of LVH, history of sleep apnea but do not want to use CPAP machine, history of tubular adenoma of colon. History of morbid obesity with BMI of 42.9. Came in today for follow-up appointment Blood pressure is slightly elevated, we will continue to monitor Patient is taking his medications, no side effects Offer no new complaints today Once again patient was advised to stop drinking, I am here to help if he needed. He already have appointment in April for follow-up Lab order placed to be done before visit. I would strongly recommend to lose some weight Continued to have 1+ pitting edema both ankles, without orthopnea shortness a breath or chest pain PFSH Medical History WALT (obstructive sleep apnea) Personal history of nicotine dependence Tubular adenoma of colon Emphysema lung Sensorineural hearing loss Pulmonary nodules LVH (left ventricular hypertrophy) Fatty liver Alcoholic polyneuropathy Lipid disorder B12 deficiency Elevated ferritin Pre-diabetes Hypertension, essential Surgical History History of colonoscopy Family History Father Lung cancer Mother No problems noted. Maternal Grandfather Cancer Maternal Grandmother Diabetes mellitus Paternal Grandfather Unknown family medical history Paternal Grandmother Unknown family medical history Brother No problems noted. Brother No problems noted. Sister No problems noted. Sister No problems noted. Son No problems noted. Social History Housing: House Alcohol intake: current Alcohol intake frequency: 0-2 drinks per day Patient Tobacco Use Status: Former Tobacco user (10 years ago ) Tobacco use type: Cigarette Years Smoked: 20 years e-Cigarette/Vaping Use: Never Used Second Hand Smoke Exposure: No Current occupational status: employed Cognitive needs: No Hearing needs: No Vision needs: No Questionnaire PHQ-9 Over the last 2 weeks, how often have you been bothered by any of the following problems? 89823 - PHQ-9 Billing: Patient declined-do not bill Source: Developed by Drs. Scooby Bender, Nelida Amaro, Jaden Shipley and colleagues, with an educational jordyn from [employer]. Thrive Questionnaire Date Thrive assessed: 12/27/23 I am a: Patient What is your living situation today?: I have a steady place to live Within the past 12 months, did the food you bought not last and you didn't have the money to get more?: Never true Within the past 12 months, did you worry whether your food would run out before you got money to buy more?: Never true Do you have trouble paying for medicines?: No Do you have trouble getting transportation to medical appointments?: No Do you have trouble paying your heating and electricity bill?: No Do you have trouble taking care of your child, family member or friend?: No Do you have trouble with day-to-day activities such as bathing, preparing meals, shopping, managing finances, etc.?: No Are you currently unemployed and looking for a job?: No Are you interested in more education?: No Please select the resources that you would like help with: None Currently or been in a relationship where the following occur: no concerns reported THRIVE Score: 0 AUDIT C Alcohol Use Questionnaire (AUDIT-C) 1. How often do you have a drink containing alcohol?: 2-4 times a month 2. How many drinks containing alcohol do you have on a typical day when you are drinking?: 3 or 4 3. How often do you have six or more drinks on one occasion?: Never Total Score: 3 Score Reviewed/Action Taken: Yes NENITA-7 AMB Questionnaire NENITA-7 Date NENITA - 7 assessed: 12/27/23 Source: Developed by Drs. Scooby Bender, Nelida Amaro, Jaden Shipley and colleagues, with an educational jordyn from [employer]. NENITA-7 Assessment Billing NENITA-7 Assessment Tool: pt declined-do not bill Review of Systems Const Denies chills and Denies fever(s) ENT Denies epistaxis and Denies nasal discharge Card Denies chest pain Resp Denies chest congestion, Denies cough and Denies hemoptysis GI Denies diarrhea and Denies nausea Skin/Breast Denies rash Neuro Reports no additional complaints Psych Reports no additional complaints Endo Reports no additional complaints Physical exam (Primary Care) Vital Signs: Last Vital Signs Pulse 80 12/27/23 08:24 BP 136/90 H 12/27/23 08:24 Pulse Ox 93 12/27/23 08:24 Oxygen Delivery Method Room Air 12/27/23 08:24 BMI result Body Mass Index 42.9 Tobacco/Smoking Status: Tobacco use Status Tobacco use date assessed 12/27/23 12/27/23 08:24 Patient Tobacco Use Status Former Tobacco user (10 12/27/23 08:24 years ago ) Tobacco use type Cigarette 12/27/23 08:24 e-Cigarette/Vaping Use Never Used 12/27/23 08:24 Thrive Assessment: Date of Thrive Assessment Date Thrive assessed 12/27/23 12/27/23 08:28 Currently or been in a relationship where the following occur: no concerns reported Const General: cooperative, comfortable and no acute distress Orientation/consciousness: patient oriented x3 HENMT Head: Yes normocephalic Eyes General: appearance normal, both eyes and all related structures Neck Neck: Yes supple Resp Effort & Inspection: normal respiratory effort, no cough and no stridor Cardio Rhythm: regular rhythm Heart sounds: S1 normal heart sound present and S2 normal heart sound present Skin General skin exam: turgor normal Neuro General: patient oriented x3, tone normal and moves all extremities Extrem Other: 1+ pitting edema both ankles Assessment and Plan Assessment & Plan (1) Hypertension, essential: Code(s): I10 - Essential (primary) hypertension (2) Pre-diabetes: Code(s): R73.03 - Prediabetes (3) Elevated ferritin: Code(s): R79.89 - Other specified abnormal findings of blood chemistry (4) Lipid disorder: Code(s): E78.9 - Disorder of lipoprotein metabolism, unspecified (5) Alcoholic polyneuropathy: Code(s): G62.1 - Alcoholic polyneuropathy (6) Fatty liver: Code(s): K76.0 - Fatty (change of) liver, not elsewhere classified (7) LFT elevation: Code(s): R79.89 - Other specified abnormal findings of blood chemistry (8) Pitting edema: Code(s): R60.9 - Edema, unspecified Plan Patient is 58-year-old gentleman with long history of alcohol use and still using, history of hypertension, prediabetes, history of elevated ferritin with hemochromatosis gene negative already evaluated by Hematology, history of lipid disorder, history of alcoholic polyneuropathy, history of fatty liver, history of LVH, history of sleep apnea but do not want to use CPAP machine, history of tubular adenoma of colon. History of morbid obesity with BMI of 42.9. Came in today for follow-up appointment Blood pressure is slightly elevated, we will continue to monitor Patient is taking his medications, no side effects Offer no new complaints today Once again patient was advised to stop drinking, I am here to help if he needed. He already have appointment in April for follow-up Lab order placed to be done before visit. I would strongly recommend to lose some weight Continued to have 1+ pitting edema both ankles, without orthopnea shortness a breath or chest pain Orders: Orders Comprehensive Met. Panel Today E78.9 - Disorder of lipoprotein metabolism, unspecified, G62.1 - Alcoholic polyneuropathy, I10 - Essential (primary) hypertension, K76.0 - Fatty (change of) liver, not elsewhere classified, R60.9 - Edema, unspecified, R73.03 - Prediabetes, R79.89 - Other specified abnormal findings of blood chemistry TSH reflex Free T4 Today E78.9 - Disorder of lipoprotein metabolism, unspecified, G62.1 - Alcoholic polyneuropathy, I10 - Essential (primary) hypertension, K76.0 - Fatty (change of) liver, not elsewhere classified, R60.9 - Edema, unspecified, R73.03 - Prediabetes, R79.89 - Other specified abnormal findings of blood chemistry Complete Blood Count Auto Diff Today E78.9 - Disorder of lipoprotein metabolism, unspecified, G62.1 - Alcoholic polyneuropathy, I10 - Essential (primary) hypertension, K76.0 - Fatty (change of) liver, not elsewhere classified, R60.9 - Edema, unspecified, R73.03 - Prediabetes, R79.89 - Other specified abnormal findings of blood chemistry LDL Cholesterol Direct Today E78.9 - Disorder of lipoprotein metabolism, unspecified, G62.1 - Alcoholic polyneuropathy, I10 - Essential (primary) hypertension, K76.0 - Fatty (change of) liver, not elsewhere classified, R60.9 - Edema, unspecified, R73.03 - Prediabetes, R79.89 - Other specified abnormal findings of blood chemistry Coding Level of Care Code Est Pt Level 4 (97327) Diagnoses Hypertension, essential I10 Pre-diabetes R73.03 Elevated ferritin R79.89 Lipid disorder E78.9 Alcoholic polyneuropathy G62.1 Fatty liver K76.0 LFT elevation R79.89 Pitting edema R60.9
== END 2023-12-27 11:29 | disposition home or self-care (01) ==
PROVIDERS: PCP Internal Medicine; Visit Provider Internal Medicine
DX: I10 Essential (primary) hypertension (principal); G62.1 Alcoholic polyneuropathy; R73.03 Prediabetes; R79.89 Other specified abnormal findings of blood chemistry; E78.9 Disorder of lipoprotein metabolism, unspecified; K76.0 Fatty (change of) liver, not elsewhere classified; R60.9 Edema, unspecified
CPT/HCPCS: 99214

== ENCOUNTER 2024-10-21 08:23 | Outpatient (REF) | payer OTHER, SELFPAY ==
[2024-10-21 08:49] LABS: MANUAL DIFF FLAG NO
[2024-10-21 09:02] LABS: Basophils Percent Auto 0.3 % (0-2); Eosinophils Absolute Auto 0.2 X10*3/uL (0.0-0.4); Eosinophils Percent Auto 2.3 % (0-4); Hemoglobin 14.2 g/dl (14.0-18.0); Imm Gran Abs Auto 0.03 X10*3/uL (0.00-0.03); Imm Gran Pct Auto 0.4 % (0.0-0.4); Lymphocytes Absolute Auto 1.1 X10*3/uL (1.2-4.9); Lymphocytes Percent Auto 16.4 % (20-40); Mean Corpuscular HGB Conc 33.8 g/dl (31.0-36.0); Mean Corpuscular Hemoglobin 32.3 pg (27.0-33.0); Mean Corpuscular Volume 95.5 fL (80.0-98.0); Mean Platelet Volume 9.8 fL (9.4-12.4); Monocytes Absolute Auto 0.7 X10*3/uL (0.1-1.2); Monocytes Percent Auto 9.9 % (2-11); Neutrophils Absolute Auto 4.9 x10*3/uL (2.0-8.3); Neutrophils Percent Auto 70.7 % (45-73); Platelet Count 193 X10*3/uL (160-400); Red Cell Distribution Width 13.4 % (11.0-16.0); White Blood Count 6.9 X10*3/uL (4.8-10.8)
[2024-10-21 09:41] LABS: Alanine Aminotransferase 35 U/L (0-40); Albumin Level 4.3 g/dL (3.5-5.0); Alkaline Phosphatase 64 U/L (39-117); Anion Gap 13 (12-20); Aspartate Amino Transferase 28 U/L (5-37); Bilirubin Total 1.8 mg/dL (0.0-1.0); Blood Urea Nitrogen 19 mg/dL (9-16); Calcium 9.6 mg/dL (8.4-10.2); Carbon Dioxide 26 mmol/L (22-29); Chloride 105 mmol/L (96-108); Estimated Glomerular Filt Rate > 60; Glucose Random 104 mg/dL (60-115); Potassium 4.6 mmol/L (3.3-5.1); Sodium 139 mmol/L (135-145); Total Protein 7.4 g/dL (6.5-8.0)
[2024-10-21 09:58] LABS: TSH reflex Free T4 0.82 uIU/mL (0.32-4.0)
[2024-10-22 08:43] LABS: LDL Cholesterol Direct 66 mg/dL (<100)
== END 2024-10-21 08:24 | disposition home or self-care (01) ==
LOC: HO.CT 08:23
PROVIDERS: PCP Internal Medicine; Visit Provider Physician Assistant Medical
DX: Z12.2 Encounter for screening for malignant neoplasm of respiratory organs (principal); Z87.891 Personal history of nicotine dependence; I10 Essential (primary) hypertension; R73.03 Prediabetes; R79.89 Other specified abnormal findings of blood chemistry; E78.9 Disorder of lipoprotein metabolism, unspecified; G62.1 Alcoholic polyneuropathy; K76.0 Fatty (change of) liver, not elsewhere classified; R60.9 Edema, unspecified
CPT/HCPCS: 36415; 71271; 80053; 83721; 84443; 85025

== ENCOUNTER → 2024-10-21 08:24 | Outpatient (BNV) | payer OTHER, SELFPAY | PROVIDERS: PCP Internal Medicine; Visit Provider Radiology Diagnostic Radiology | DX: Z87.891 Personal history of nicotine dependence (principal) | CPT/HCPCS: 71271 ==

== ENCOUNTER 2024-10-29 09:21 | Outpatient (AMB) | payer OTHER, SELFPAY ==
--- NOTE | 2024-10-29 09:30 | A.OFFPC_ITS ---
Vital Signs 10/29/24 09:32 Height 6 ft 2 in Weight 295 lb 2 oz BMI 37.9 BP 132/74 Blood Pressure Location Lt brachial Position Sitting Pulse 73 Pulse Source Pulse Oximeter Pulse Oximetry (%) 95 Oxygen Delivery Method Room Air Intake Visit Reasons: Meds follow up Allergies No Known Allergies [No Known Allergies*] Allergy (Verified 10/29/24 09:32) Medication List - Last Reconciled 10/29/24 by Kelsie Frye MD atorvastatin 40 mg PO DAILY cyanocobalamin (vitamin B-12) 2,000 mcg (2 x 1,000 mcg) PO DAILY lisinopril 10 mg PO DAILY 90 days Tobacco use date assessed: 10/29/24 Dental Screening Dental Screen Date: 10/29/24 Did you have a dental visit in the last 12 months?: Yes Did you have a dental problem in the last 6 months where you did not have access to dental care?: No Was dental information given to patient?: Patient has dentist HPI Meds follow up HPI Details History The patient is a 59-year-old male presenting for a follow-up. patient was last seen November of last year and missed his regular follow-up appointment after - Currently treated with atorvastatin an d lisinopril for dyslipidemia and hypertension, respectively. - Previously took vitamin B, which he armenta s since stopped due to a refill issue. - Comprehensive lab tests conducted rece ntly assessing blood count, metabolic panel, and thyroid, with results largely normal except a slightly elevated total bilirubin. - A CT scan of the chest identified a ch ronic obstructive pulmonary disease (COPD) with moderate emphysema and revealed a 4 mm noncalcified pulmonary nodule. This nodule is consistent with previous findings and is believed probably benign, necessitating a repeat CT in six months for further assessment. - Denies any recent respiratory distress , chest pain, or gastrointestinal symptoms. 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 - Reports alcohol consumption Daily and has no intentions to stop. Problem List - Dyslipidemia - Essential Hypertension - Chronic Obstructive Pulmonary Disease (COPD) - Moderate Emphysema - Pulmonary Nodule [address] s can six-months order placed - obesity with BMI of 37.9 Patient Instructions - Continue taking atorvastatin and lisin opril as prescribed. - Prepare for a repeat CT scan of the julian ngs in six months to monitor the pulmonary nodule. - Continue regular exercise regimen. - Monitor health and report any new symp toms, especially respiratory or cardiovascular changes. - Abstain from smoking and limit alcohol intake. it will be better if you stop - Regular follow-up is advised in six mo nt with lab tests and imaging reassessment. Review of Systems - General: No fever no chills - Neurological: No headaches no dizziness - Ear nose throat: No sore throat no hearing difficulty no ear pain - Cardiovascular: No syncope, no chest pain, no palpitations - Gastrointestinal: No nausea vomiting or diarrhea - Endocrine: No polyuria polydipsia no heat intolerance - Genitourinary: No dysuria , no blood in urine Physical Exam General: No acute distress HEENT: No acute findings Neck: Supple Respiratory system: Able to talk in full sentences, no audible wheeze, moderate emphysema noted Cardiovascular: S1-S2 regular in rate and rhythm Gastrointestinal: No pain Extremities: No new findings PACKER INSULATION: Alert awake oriented x3 motor sensory intact Skin: Normal turgor [facility] Medical History LVH (left ventricular hypertrophy) Hypertension, essential Lipid disorder Pre-diabetes WALT (obstructive sleep apnea) Emphysema lung Pulmonary nodules Personal history of nicotine dependence Morbid obesity due to excess calories Tubular adenoma of colon Sensorineural hearing loss Fatty liver Alcoholic polyneuropathy B12 deficiency Elevated ferritin Surgical History History of colonoscopy Family History Father Lung cancer Mother No problems noted. Maternal Grandfather Cancer Maternal Grandmother Diabetes mellitus Paternal Grandfather Unknown family medical history Paternal Grandmother Unknown family medical history Brother No problems noted. Brother No problems noted. Sister No problems noted. Sister No problems noted. Son No problems noted. Social History Housing: House Alcohol intake: current Alcohol intake frequency: 0-2 drinks per day Patient Tobacco Use Status: Former Tobacco user (10 years ago ) Tobacco use type: Cigarette Years Smoked: 20 years e-Cigarette/Vaping Use: Never Used Second Hand Smoke Exposure: No Current occupational status: employed Cognitive needs: No Hearing needs: No Vision needs: No Questionnaire PHQ-9 Over the last 2 weeks, how often have you been bothered by any of the following problems? 1. Little interest or pleasure in doing things: not at all 2. Feeling down, depressed, or hopeless: not at all 3. Trouble falling or staying asleep, or sleeping too much: not at all 4. Feeling tired or having little energy: not at all 5. Poor appetite or overeating: not at all 6. Feeling bad about yourself - or that you are a failure or have let yourself or your family down: not at all 7. Trouble concentrating on things, such as reading the newspaper or watching television: not at all 8. Moving or speaking so slowly that other people could have noticed. Or the opposite - being so fidgety or restless that you have been moving around a lot more than usual: not at all 9. Thoughts that you would be better off or of hurting yourself in some way: not at all Total score: 0 Depression Screening Interpretation: Negative Depression Screening Done: Yes 79784 - PHQ-9 Billing: Yes Source: Developed by Drs. Scooby Bender, Nelida Amaro, Jaden Shipley and colleagues, with an educational jordyn from [employer]. Thrive Questionnaire Date Thrive assessed: 10/29/24 I am a: Patient What is your living situation today?: I choose not to answer this question Within the past 12 months, did the food you bought not last and you didn't have the money to get more?: I choose not to answer this question Within the past 12 months, did you worry whether your food would run out before you got money to buy more?: I choose not to answer this question Do you have trouble paying for medicines?: I choose not to answer this question Do you have trouble getting transportation to medical appointments?: I choose not to answer this question Do you have trouble paying your heating and electricity bill?: I choose not to answer this question Do you have trouble taking care of your child, family member or friend?: I choose not to answer this question Do you have trouble with day-to-day activities such as bathing, preparing meals, shopping, managing finances, etc.?: I choose not to answer this question Are you currently unemployed and looking for a job?: I choose not to answer this question Are you interested in more education?: I choose not to answer this question Please select the resources that you would like help with: None Currently or been in a relationship where the following occur: I choose not to answer THRIVE Score: 0 AUDIT C Alcohol Use Questionnaire (AUDIT-C) 1. How often do you have a drink containing alcohol?: 4 or more times a week 2. How many drinks containing alcohol do you have on a typical day when you are drinking?: 3 or 4 3. How often do you have six or more drinks on one occasion?: Never Total Score: 5 Score Reviewed/Action Taken: Yes NENITA-7 AMB Questionnaire NENITA-7 Date NENITA - 7 assessed: 10/29/24 Feeling nervous, anxious, or on edge: 0 = Not at all Not being able to stop or control worryin = Not at all Worrying too much about different things: 0 = Not at all Trouble relaxin = Not at all Being so restless that it is hard to sit still: 0 = Not at all Becoming easily annoyed or irritable: 0 = Not at all Feeling afraid as if something awful might happen: 0 = Not at all Total NENITA-7 score (0-4 normal; 5-9 mild; 10-14 moderate; 15-21 severe): 0 Source: Developed by Drs. Scooby Bender, Nelida Amaro, Jaden Shipley and colleagues, with an educational jordyn from [employer]. NENITA-7 Assessment Billing NENITA-7 Assessment Tool: NENITA-7 Assessment 62587 Physical exam (Primary Care) Vital Signs: Last Vital Signs Pulse 73 10/29/24 09:32 BP 132/74 10/29/24 09:32 Pulse Ox 95 10/29/24 09:32 Oxygen Delivery Method Room Air 10/29/24 09:32 BMI result Body Mass Index 37.9 Tobacco/Smoking Status: Tobacco use Status Tobacco use date assessed 10/29/24 10/29/24 09:34 Patient Tobacco Use Status Former Tobacco user (10/29/24 09:31 years ago ) Tobacco use type Cigarette 10/29/24 09:31 e-Cigarette/Vaping Use Never Used 10/29/24 09:31 PHQ-9: PHQ-9 Score PHQ-9: Total score 0 10/29/24 09:48 Depression Screening Interpretation: Negative Thrive Assessment: Date of Thrive Assessment Date Thrive assessed 10/29/24 10/29/24 09:34 Currently or been in a relationship where the following occur: I choose not to answer Coding Level of Care Code Est Pt Level 4 (19862) Diagnoses Hypertension, essential I10 Lipid disorder E78.9 Alcoholic polyneuropathy G62.1 LVH (left ventricular hypertrophy) I51.7 Alcoholism F10.20 LFT elevation R79.89 Moderate COPD (chronic obstructive pulmonary disease) J44.9 Pulmonary nodule less than 6 mm in diameter with high risk for malignant neoplasm R91.1; Z91.89 Additional Codes NENITA-7 Assessment Billing - NENITA-7 Assessment Tool: NENITA-7 Assessment 67911 ([id number]) PHQ-9 - 75802 - PHQ-9 Billing: Yes ([id number]) Assessment & Plan Assessment & Plan (1) Hypertension, essential: Code(s): I10 - Essential (primary) hypertension Category: Medical (2) Lipid disorder: Code(s): E78.9 - Disorder of lipoprotein metabolism, unspecified Category: Medical (3) Alcoholic polyneuropathy: Code(s): G62.1 - Alcoholic polyneuropathy Category: Medical (4) LVH (left ventricular hypertrophy): Code(s): I51.7 - Cardiomegaly Category: Medical (5) Alcoholism: Code(s): F10.20 - Alcohol dependence, uncomplicated Category: Medical (6) LFT elevation: Code(s): R79.89 - Other specified abnormal findings of blood chemistry Category: Medical (7) Moderate COPD (chronic obstructive pulmonary disease): Code(s): J44.9 - Chronic obstructive pulmonary disease, unspecified Category: Medical (8) Pulmonary nodule less than 6 mm in diameter with high risk for malignant neoplasm: Code(s): R91.1 - Solitary pulmonary nodule; Z91.89 - Other specified personal risk factors, not elsewhere classified Category: Medical Plan History The patient is a 59-year-old male presenting for a follow-up. patient was last seen November of last year and missed his regular follow-up appointment after - Currently treated with atorvastatin and lisinopril for dyslipidemia and hypertension, respectively. - Previously took vitamin B, which he has since stopped due to a refill issue. - Comprehensive lab tests conducted recently assessing blood count, metabolic panel, and thyroid, with results largely normal except a slightly elevated total bilirubin. - A CT scan of the chest identified a chronic obstructive pulmonary disease (COPD) with moderate emphysema and revealed a 4 mm noncalcified pulmonary nodule. This nodule is consistent with previous findings and is believed probably benign, necessitating a repeat CT in six months for further assessment. - Denies any recent respiratory distress, chest pain, or gastrointestinal symptoms. 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 - Reports alcohol consumption Daily and has no intentions to stop. Problem List - Dyslipidemia - Essential Hypertension - Chronic Obstructive Pulmonary Disease (COPD) - history of LVH - Moderate Emphysema - Pulmonary Nodule [address] scan six-months order placed - obesity with BMI of 37.9 Patient Instructions - Continue taking atorvastatin and lisinopril as prescribed. - Prepare for a repeat CT scan of the lungs in six months to monitor the pulmonary nodule. - Continue regular exercise regimen. - Monitor health and report any new symptoms, especially respiratory or cardiovascular changes. - Abstain from smoking and limit alcohol intake. it will be better if you stop - Regular follow-up is advised in six months with lab tests and imaging reassessment. Orders: Orders Complete Blood Count Auto Diff 5 Months E78.9 - Disorder of lipoprotein metabolism, unspecified, F10.20 - Alcohol dependence, uncomplicated, G62.1 - Alcoholic polyneuropathy, I10 - Essential (primary) hypertension, I51.7 - Cardiomegaly, J44.9 - Chronic obstructive pulmonary disease, unspecified, R79.89 - Other specified abnormal findings of blood chemistry, R91.1 - Solitary pulmonary nodule, Z91.89 - Other specified personal risk factors, not elsewhere classified Comprehensive Met. Panel 5 Months E78.9 - Disorder of lipoprotein metabolism, unspecified, F10.20 - Alcohol dependence, uncomplicated, G62.1 - Alcoholic polyneuropathy, I10 - Essential (primary) hypertension, I51.7 - Cardiomegaly, J44.9 - Chronic obstructive pulmonary disease, unspecified, R79.89 - Other specified abnormal findings of blood chemistry, R91.1 - Solitary pulmonary nodule, Z91.89 - Other specified personal risk factors, not elsewhere classified LDL Cholesterol Direct 5 Months E78.9 - Disorder of lipoprotein metabolism, unspecified, F10.20 - Alcohol dependence, uncomplicated, G62.1 - Alcoholic polyneuropathy, I10 - Essential (primary) hypertension, I51.7 - Cardiomegaly, J44.9 - Chronic obstructive pulmonary disease, unspecified, R79.89 - Other specified abnormal findings of blood chemistry, R91.1 - Solitary pulmonary nodule, Z91.89 - Other specified personal risk factors, not elsewhere classified Ferritin 5 Months E78.9 - Disorder of lipoprotein metabolism, unspecified, F10.20 - Alcohol dependence, uncomplicated, G62.1 - Alcoholic polyneuropathy, I10 - Essential (primary) hypertension, I51.7 - Cardiomegaly, J44.9 - Chronic obstructive pulmonary disease, unspecified, R79.89 - Other specified abnormal findings of blood chemistry, R91.1 - Solitary pulmonary nodule, Z91.89 - Other specified personal risk factors, not elsewhere classified CT chest wo IV con 6 Months R91.1 - Solitary pulmonary nodule, Z91.89 - Other specified personal risk factors, not elsewhere classified
[2024-10-29 09:32] VITALS: BP 132/74; PULSE 73; O2SAT 95; BMI 37.9
== END 2024-10-29 09:51 | disposition home or self-care (01) ==
LOC: HO.HMCC 09:22
PROVIDERS: PCP Internal Medicine; Visit Provider Internal Medicine
DX: I10 Essential (primary) hypertension (principal); E78.9 Disorder of lipoprotein metabolism, unspecified; G62.1 Alcoholic polyneuropathy; I51.7 Cardiomegaly; F10.20 Alcohol dependence, uncomplicated; R79.89 Other specified abnormal findings of blood chemistry; J44.9 Chronic obstructive pulmonary disease, unspecified; R91.1 Solitary pulmonary nodule; Z91.89 Other specified personal risk factors, not elsewhere classified

== ENCOUNTER → 2024-10-29 09:21 | Outpatient (BNVA) | payer OTHER, SELFPAY | PROVIDERS: PCP Internal Medicine; Visit Provider Internal Medicine | DX: I10 Essential (primary) hypertension (principal); E78.5 Hyperlipidemia, unspecified; G62.1 Alcoholic polyneuropathy; I51.7 Cardiomegaly; F10.20 Alcohol dependence, uncomplicated; R79.89 Other specified abnormal findings of blood chemistry; J44.9 Chronic obstructive pulmonary disease, unspecified; R91.1 Solitary pulmonary nodule; Z91.89 Other specified personal risk factors, not elsewhere classified; Z79.899 Other long term (current) drug therapy | CPT/HCPCS: 96127 ==

== ENCOUNTER 2025-05-05 07:33 | Outpatient (REF) | payer OTHER, SELFPAY ==
--- NOTE | ~2025-05-05 | CT_ITS ---
EXAMINATION: CT CHEST WITHOUT IV CONTRAST INDICATION: R91.1 - Solitary pulmonary nodule COMPARISON: Comparison is made with multiple prior examinations dating back to 10/02/2018. TECHNIQUE: Helical CT scan of the chest was performed without intravenous contrast. Coronal and sagittal reformatted images were generated and reviewed. This CT exam was performed with one or more of the following dose reduction techniques: automated exposure control, adjustment of the mA and/or kV according to patient size, use of iterative reconstruction technique. DLP: 244 mGy-cm CHEST: THYROID: The thyroid is unremarkable. LUNGS: Again seen is a 4 mm nodule in the lingula (series 4, image 103). No additional pulmonary nodules are identified. Again seen is subpleural scarring in both lower lobes. MEDIASTINUM: There is no mediastinal lymphadenopathy. JULIOCESAR: Evaluation of the hilar regions is limited by lack of intravenous contrast material. CARDIOVASCULATURE: The heart is normal in size. There is no pericardial effusion. The thoracic aorta is normal in caliber. DEGREE OF CORONARY CALCIFICATION: mild PLEURA: There is no pleural effusion. No pneumothorax. MAIN AIRWAYS: The mainstem bronchi and proximal branches are patent. AXILLA: There is no axillary lymphadenopathy. BONES AND SOFT TISSUES: Unremarkable UPPER ABDOMEN: The visualized portions of the liver, spleen, and adrenals have an unremarkable unenhanced appearance. CT/CT chest wo IV con IMPRESSION: Stable 4 mm lingular nodule. The patient may resume annual low-dose screening chest CT. Electronically signed by: Scooby Zelaya MD 05/05/2025 10:16 AM EDT
[2025-05-05 08:08] LABS: MANUAL DIFF FLAG NO
[2025-05-05 08:23] LABS: Hematocrit 39.0 % (42.0-52.0); Hemoglobin 13.1 g/dl (14.0-18.0); Imm Gran Abs Auto 0.03 X10*3/uL (0.00-0.03); Imm Gran Pct Auto 0.5 % (0.0-0.4); Lymphocytes Absolute Auto 0.9 X10*3/uL (1.2-4.9); Mean Corpuscular HGB Conc 33.6 g/dl (31.0-36.0); Mean Corpuscular Hemoglobin 32.6 pg (27.0-33.0); Mean Corpuscular Volume 97.0 fL (80.0-98.0); NRBC Abs Auto 0.000 X10*3/uL (0.0-0.012); NRBC Pct Auto 0.0 /100WBC (0.0-0.2); Platelet Count 188 X10*3/uL (160-400); Red Blood Count 4.02 X10*6/uL (4.60-5.80); White Blood Count 6.6 X10*3/uL (4.8-10.8)
[2025-05-05 08:32] LABS: Alanine Aminotransferase 19 U/L (0-40); Albumin Level 4.5 g/dL (3.5-5.0); Alkaline Phosphatase 59 U/L (39-117); Anion Gap 10 (12-20); Aspartate Amino Transferase 20 U/L (5-37); Blood Urea Nitrogen 19 mg/dL (9-16); Calcium 9.6 mg/dL (8.4-10.2); Carbon Dioxide 28 mmol/L (22-29); Chloride 103 mmol/L (96-108); Estimated Glomerular Filt Rate > 60; Potassium 4.7 mmol/L (3.3-5.1); Sodium 136 mmol/L (135-145); Total Protein 7.3 g/dL (6.5-8.0)
[2025-05-05 08:46] LABS: Ferritin 693 ng/mL (20-250)
== END 2025-05-05 07:34 | disposition home or self-care (01) ==
LOC: HO.CT 07:33
PROVIDERS: PCP Internal Medicine; Visit Provider Internal Medicine
DX: R91.1 Solitary pulmonary nodule (principal); Z91.89 Other specified personal risk factors, not elsewhere classified; I10 Essential (primary) hypertension; E78.9 Disorder of lipoprotein metabolism, unspecified; F10.20 Alcohol dependence, uncomplicated; G62.1 Alcoholic polyneuropathy; I51.7 Cardiomegaly; R79.89 Other specified abnormal findings of blood chemistry; J44.9 Chronic obstructive pulmonary disease, unspecified
CPT/HCPCS: 36415; 71250; 80053; 82728; 83721; 85025

== ENCOUNTER → 2025-05-05 07:36 | Outpatient (BNV) | payer OTHER, SELFPAY | PROVIDERS: PCP Internal Medicine; Visit Provider Radiology Diagnostic Radiology | DX: R91.1 Solitary pulmonary nodule (principal) | CPT/HCPCS: 71250 ==

== ENCOUNTER 2025-05-27 08:50 | Outpatient (AMB) | payer OTHER, SELFPAY ==
--- NOTE | 2025-05-27 08:51 | A.OFFPC_ITS ---
Vital Signs 05/27/25 08:54 05/27/25 16:48 Height 6 ft 2 in Weight 257 lb BMI 33.0 BP 144/100 H 130/88 Blood Pressure Location Rt brachial Position Sitting Respiration 16 Pulse 66 Pulse Source Pulse Oximeter Pulse Oximetry (%) 100 Oxygen Delivery Method Room Air Intake Visit Reasons: 6m follow up Allergies No Known Allergies (No Known Allergies*) Allergy (Verified 05/27/25 08:52) Medication List - Last Reconciled 05/27/25 by Kelsie Frye MD atorvastatin 40 mg PO DAILY lisinopril 10 mg PO DAILY 90 days Tobacco use date assessed: 10/29/24 Dental Screening Dental Screen Date: 10/29/24 HPI 6m follow up HPI Details History of Present Illness The patient is a 60-year-old male presenting for a follow-up appointment for chronic condition management. Hypertension: - The patient has a history of hypertens ion, with a reading of 144/100 mmHg recorded during the visit. - He is currently prescribed lisinopril 10 mg. - The patient reports experiencing light headedness for the last couple of weeks, especially when getting up quickly, and recounted one episode where he fell after getting up in the middle of the night. - He owns a blood pressure machine but h as not been monitoring his readings at home. Hyperferritinemia: - Recent lab work showed a ferritin leve l of 693, an increase from 400 in November, with the normal range being below 250. - The patient has been seen by hematolog y in the past for this issue and is hemochromatosis gene negative. - His total bilirubin is 1.5, and other liver enzymes are stable. Anemia: - Recent blood tests revealed a hemoglob in of 13.1, indicating mild anemia. - This is a fluctuating issue for the baldemar christina, as his hemoglobin was 13.7 in 2020. Alcoholic Polyneuropathy: - The patient has a known diagnosis of a lcoholic polyneuropathy. Alcohol Use: - The patient confirmed that he continue s to drink alcohol. - He reported drinking before bed on the night he experienced a fall. Obesity and Weight Management: - The patient's BMI is elevated at 33.2. - He reports a significant weight loss o f approximately 80 pounds achieved through dietary changes and daily exercise. Medical History: - Alcoholic polyneuropathy - Hypertension - Anemia, fluctuating - Hyperferritinemia, hemochromatosis gen e negative, previously evaluated by hematology. - Obesity with recent significant weight loss - History of alcohol use Social History: - Substance Use: Patient confirms contin ued alcohol consumption. - Exercise: Reports exercising every day . - Diet and Weight Management: The patien suma has lost approximately 80 pounds by changing his diet. Diagnostic Results: - Labs: - Hemoglobin: 13.1 (was 13.7 in 2020). - Ferritin: 693. - Total bilirubin: 1.5. - LDL: 64. - Platelets: within normal range. - Electrolytes: stable. - Kidney function: intact. - Liver enzymes: stable. - Genetic testing: Negative for hemochro matosis gene. Problem List - Alcoholic polyneuropathy - Hypertension - Anemia - Hyperferritinemia - Alcohol use - Obesity - Preventative Care: Patient declined fl u vaccine. Plan - Hypertension: The plan to increase lis inopril was rescinded after a repeat blood pressure reading was lower at 130/88 mmHg. - The patient will continue on lisinopri l 10 mg. - He was instructed to monitor his blood pressure at home for one week and call with the readings. - The patient's report of lightheadednes s and a fall was attributed to alcohol consumption. and discussed with patient - Hyperferritinemia: A message will be s ent to hematology regarding the patient's elevated ferritin level of 693. - Hematology will contact the patient if a follow-up visit is required. - Anemia: Will continue to monitor the p atient's fluctuating hemoglobin. - No iron supplementation will be prescr ibed at this time due to high iron stores. - Alcohol Use: The patient was advised t o reduce his alcohol consumption. - Labs: The patient needs to have repeat blood work in 3 months. - Follow-up: The patient is to return to the clinic in 4 months. - Vaccinations: The patient declined a f julian vaccine. Review of Systems - General: No fever no chills - Neurological: No headaches - Ear nose throat: No sore throat no hearing difficulty no ear pain - Cardiovascular: No syncope, no chest pain, no palpitations - Gastrointestinal: No nausea vomiting or diarrhea - Endocrine: No polyuria polydipsia no heat intolerance - Genitourinary: No dysuria , no blood in urine Physical Exam General: No acute distress HEENT: No acute findings Neck: Supple Respiratory system: Able to talk in full sentences, no audible wheeze Cardiovascular: S1-S2 regular in rate and rhythm Gastrointestinal: No pain, slight swelling noted Extremities: No new findings, no pain in legs G[employer]LL [employer]ER: Alert awake oriented x3 motor intact Skin: Normal turgor PFSH Medical History LVH (left ventricular hypertrophy) Hypertension, essential Lipid disorder Pre-diabetes WALT (obstructive sleep apnea) Emphysema lung Pulmonary nodules Personal history of nicotine dependence Morbid obesity due to excess calories Tubular adenoma of colon Sensorineural hearing loss Fatty liver Alcoholic polyneuropathy B12 deficiency Elevated ferritin Surgical History History of colonoscopy Family History Father Lung cancer Mother No problems noted. Maternal Grandfather Cancer Maternal Grandmother Diabetes mellitus Paternal Grandfather Unknown family medical history Paternal Grandmother Unknown family medical history Brother No problems noted. Brother No problems noted. Sister No problems noted. Sister No problems noted. Son No problems noted. Social History Housing: House Alcohol intake: current Alcohol intake frequency: 0-2 drinks per day Patient Tobacco Use Status: Former Tobacco user (10 years ago ) Tobacco use type: Cigarette Years Smoked: 20 years e-Cigarette/Vaping Use: Never Used Second Hand Smoke Exposure: No Current occupational status: employed Cognitive needs: No Hearing needs: No Vision needs: No Questionnaire Thrive Questionnaire Date Thrive assessed: 10/22/24 I am a: Patient What is your living situation today?: I choose not to answer this question Within the past 12 months, did the food you bought not last and you didn't have the money to get more?: I choose not to answer this question Within the past 12 months, did you worry whether your food would run out before you got money to buy more?: I choose not to answer this question Do you have trouble paying for medicines?: I choose not to answer this question Do you have trouble getting transportation to medical appointments?: I choose not to answer this question Do you have trouble paying your heating and electricity bill?: I choose not to answer this question Do you have trouble taking care of your child, family member or friend?: I choose not to answer this question Do you have trouble with day-to-day activities such as bathing, preparing meals, shopping, managing finances, etc.?: I choose not to answer this question Are you currently unemployed and looking for a job?: I choose not to answer this question Are you interested in more education?: I choose not to answer this question Please select the resources that you would like help with: None Currently or been in a relationship where the following occur: I choose not to answer THRIVE Score: 0 NENITA-7 AMB Questionnaire NENITA-7 Date NENITA - 7 assessed: 10/29/24 Source: Developed by Drs. Scooby Bender, Nelida Amaro, Jaden Shipley and colleagues, with an educational jordyn from [employer]. Physical exam (Primary Care) Vital Signs: Last Vital Signs Pulse 66 05/27/25 08:54 Resp 16 05/27/25 08:54 BP 144/100 H 05/27/25 08:54 Pulse Ox 100 05/27/25 08:54 Oxygen Delivery Method Room Air 05/27/25 08:54 BMI result Body Mass Index 33.0 Tobacco/Smoking Status: Tobacco use Status Tobacco use date assessed 10/29/24 05/27/25 08:54 Patient Tobacco Use Status Former Tobacco user (10 05/27/25 08:54 years ago ) Tobacco use type Cigarette 05/27/25 08:54 e-Cigarette/Vaping Use Never Used 05/27/25 08:54 Thrive Assessment: Date of Thrive Assessment Date Thrive assessed 10/22/24 05/27/25 08:54 Currently or been in a relationship where the following occur: I choose not to answer Coding Level of Care Code Est Pt Level 4 (58870) Diagnoses Hypertension, essential I10 Pre-diabetes R73.03 Elevated ferritin R79.89 LVH (left ventricular hypertrophy) I51.7 Alcoholism F10.20 Elevated vitamin B12 level R74.8 Alcoholic polyneuropathy G62.1 Moderate COPD (chronic obstructive pulmonary disease) J44.9 Assessment & Plan Assessment & Plan (1) Hypertension, essential: Code(s): I10 - Essential (primary) hypertension Category: Medical (2) Pre-diabetes: Code(s): R73.03 - Prediabetes Category: Medical (3) Elevated ferritin: Code(s): R79.89 - Other specified abnormal findings of blood chemistry Category: Medical (4) LVH (left ventricular hypertrophy): Code(s): I51.7 - Cardiomegaly Category: Medical (5) Alcoholism: Code(s): F10.20 - Alcohol dependence, uncomplicated Category: Medical (6) Elevated vitamin B12 level: Code(s): R74.8 - Abnormal levels of other serum enzymes Category: Medical (7) Alcoholic polyneuropathy: Code(s): G62.1 - Alcoholic polyneuropathy Category: Medical (8) Moderate COPD (chronic obstructive pulmonary disease): Code(s): J44.9 - Chronic obstructive pulmonary disease, unspecified Category: Medical Plan Hypertension: - The patient has a history of hypertension, with a reading of 144/100 mmHg recorded during the visit. - He is currently prescribed lisinopril 10 mg. - The patient reports experiencing lightheadedness for the last couple of weeks, especially when getting up quickly, and recounted one episode where he fell after getting up in the middle of the night. - He owns a blood pressure machine but has not been monitoring his readings at home. Hyperferritinemia: - Recent lab work showed a ferritin level of 693, an increase from 400 in November, with the normal range being below 250. - The patient has been seen by hematology in the past for this issue and is hemochromatosis gene negative. - His total bilirubin is 1.5, and other liver enzymes are stable. Anemia: - Recent blood tests revealed a hemoglobin of 13.1, indicating mild anemia. - This is a fluctuating issue for the patient, as his hemoglobin was 13.7 in 2020. Alcoholic Polyneuropathy: - The patient has a known diagnosis of alcoholic polyneuropathy. Alcohol Use: - The patient confirmed that he continues to drink alcohol. - He reported drinking before bed on the night he experienced a fall. Obesity and Weight Management: - The patient's BMI is elevated at 33.2. - He reports a significant weight loss of approximately 80 pounds achieved through dietary changes and daily exercise. Medical History: - Alcoholic polyneuropathy - Hypertension - Anemia, fluctuating - Hyperferritinemia, hemochromatosis gene negative, previously evaluated by hematology. - Obesity with recent significant weight loss - History of alcohol use Social History: - Substance Use: Patient confirms continued alcohol consumption. - Exercise: Reports exercising every day. - Diet and Weight Management: The patient has lost approximately 80 pounds by changing his diet. Diagnostic Results: - Labs: - Hemoglobin: 13.1 (was 13.7 in 2020). - Ferritin: 693. - Total bilirubin: 1.5. - LDL: 64. - Platelets: within normal range. - Electrolytes: stable. - Kidney function: intact. - Liver enzymes: stable. - Genetic testing: Negative for hemochromatosis gene. Problem List - Alcoholic polyneuropathy - Hypertension - Anemia - Hyperferritinemia - Alcohol use - Obesity - Preventative Care: Patient declined flu vaccine. Plan - Hypertension: The plan to increase lisinopril was rescinded after a repeat blood pressure reading was lower at 130/88 mmHg. - The patient will continue on lisinopril 10 mg. - He was instructed to monitor his blood pressure at home for one week and call with the readings. - The patient's report of lightheadedness and a fall was attributed to alcohol consumption. and discussed with patient - Hyperferritinemia: A message will be sent to hematology regarding the patient's elevated ferritin level of 693. - Hematology will contact the patient if a follow-up visit is required. - Anemia: Will continue to monitor the patient's fluctuating hemoglobin. - No iron supplementation will be prescribed at this time due to high iron stores. - Alcohol Use: The patient was advised to reduce his alcohol consumption. - Labs: The patient needs to have repeat blood work in 3 months. - Follow-up: The patient is to return to the clinic in 4 months. - Vaccinations: The patient declined a flu vaccine. Orders: Orders Complete Blood Count Auto Diff Today F10.20 - Alcohol dependence, uncomplicated, I10 - Essential (primary) hypertension, I51.7 - Cardiomegaly, R73.03 - Prediabetes, R79.89 - Other specified abnormal findings of blood chemistry Hemoglobin A1c Today R73.03 - Prediabetes, R74.8 - Abnormal levels of other serum enzymes Ferritin Today F10.20 - Alcohol dependence, uncomplicated, I10 - Essential (primary) hypertension, I51.7 - Cardiomegaly, R73.03 - Prediabetes, R79.89 - Other specified abnormal findings of blood chemistry Comprehensive Met. Panel Today F10.20 - Alcohol dependence, uncomplicated, I10 - Essential (primary) hypertension, I51.7 - Cardiomegaly, R73.03 - Prediabetes, R79.89 - Other specified abnormal findings of blood chemistry Vitamin B12 Today R73.03 - Prediabetes, R74.8 - Abnormal levels of other serum enzymes
[2025-05-27 08:54] VITALS: BP 144/100; PULSE 66; RESP 16; O2SAT 100; BMI 33.0
[2025-05-27 16:48] VITALS: BP 130/88
== END 2025-05-27 09:13 | disposition home or self-care (01) ==
LOC: HO.HMCC 08:51
PROVIDERS: PCP Internal Medicine; Visit Provider Internal Medicine
DX: I10 Essential (primary) hypertension (principal); R73.03 Prediabetes; F10.20 Alcohol dependence, uncomplicated; J44.9 Chronic obstructive pulmonary disease, unspecified; R79.89 Other specified abnormal findings of blood chemistry; I51.7 Cardiomegaly; R74.8 Abnormal levels of other serum enzymes; G62.1 Alcoholic polyneuropathy